=== PATIENT | female | born 1950 | race Two or more races ===

== ENCOUNTER 2017-11-01 12:52 | Outpatient (CLI) | payer MEDICARE | END 2017-11-01 12:53 | disposition home or self-care (01) | LOC: CT 12:52 | PROVIDERS: ATTEND Internal Medicine Cardiovascular Disease | DX: R07.9 Chest pain, unspecified (principal); I25.10 Atherosclerotic heart disease of native coronary artery without angina pectoris; I70.0 Atherosclerosis of aorta | CPT/HCPCS: 75571 ==